=== PATIENT | female | born 2000 | race African-American/Black ===

== ENCOUNTER 2018-07-11 07:51 | Emergency (ER) | payer MEDICAID ==
[~2018-07-11] VITALS: Ht 154.9 cm; Wt 54.4 kg
[2018-07-11 08:29] LABS: Urine Bacteria NONE SEEN /hpf (None Seen); Urine Blood Negative /uL (Negative); Urine Specific Gravity 1.024 (1.001-1.035); Urine WBC 27 /hpf (0 - 5)
[2018-07-11 08:41] VITALS: BP 125/71
[2018-07-11 08:48] LABS: Alcohol, Urine < 3.0 mg/dL (0-5); Amphetamine Screen, Urine NEGATIVE (NEGATIVE); Barbiturate Scree,Urine NEGATIVE (NEGATIVE); Benzodiazephine Screen, Urine NEGATIVE (NEGATIVE); Cannabinoid Screen, Urine NEGATIVE (NEGATIVE); Cocaine Screen, Urine NEGATIVE (NEGATIVE); Opiate Scree,Urine NEGATIVE (NEGATIVE); Phencyclidine Screen, Urine NEGATIVE (NEGATIVE)
[2018-07-11 09:01] LABS: Basophils # (auto) 0.1 uL; Basophils % (auto) 0.7 % (0.0-2.0); Eosinophils # (auto) 0.4 uL; Eosinophils % (auto) 4.9 % (0.0-7.0); Hematocrit 35.5 % (36.0-46.0); Hemoglobin 10.9 g/dL (12.2-16.2); Lymphocytes # (auto) 1.8 uL; Mean Corpuscular Hemoglobin 20.1 pg (28.0-32.0); Mean Corpuscular Hgb Conc. 30.7 g/dL (32.0-36.0); Mean Corpuscular Volume 65.5 fL (80.0-100.0); Monocytes # (auto) 0.7 uL; Neutrophils # (auto) 5.5 uL; Neutrophils % (auto) 65.4 % (37.0-80.0); Platelet Count (auto) 401 10^3/uL (140-450); Red Blood Cells 5.42 10^6/uL (4.0-5.20); Red Cell Distribution Width 19.6 % (11.8-14.3); White Blood Cell 8.4 10^3/uL (4.4-10.8)
[2018-07-11 09:05] LABS: Urine Pregnacy Test Negative (Negative)
[2018-07-11 09:18] LABS: Calcium 8.7 mg/dL (8.5-10.1); Potassium 3.8 mmol/L (3.5-5.1)
[2018-07-11 09:22] LABS: BUN/Creatinine Ratio 17.2
[2018-07-11 09:24] LABS: Bilirubin, Total 0.2 mg/dL (0.2-1.0); Total Protein 7.7 g/dL (6.4-8.2)
[2018-07-11] MEDS ORDERED: LIDOCAINE W/ EPINEPHRINE 1 % INJ 30ML ONE (09:44)
[2018-07-11] MEDS ORDERED: cefTRIAXone SOD 1,000 MG VL IM ONE (09:45)
== END 2018-07-11 10:16 | disposition home or self-care (01) ==
LOC: ER 07:51
DX: R11.2 Nausea with vomiting, unspecified (principal); N39.0 Urinary tract infection, site not specified; G89.29 Other chronic pain; Z76.0 Encounter for issue of repeat prescription; Z32.02 Encounter for pregnancy test, result negative
CPT/HCPCS: 36415; 80053; 80307; 81001; 81025; 85025; 96372; 99284; J0696; J2001

== ENCOUNTER 2021-08-10 12:19 | Emergency (ER) | payer MEDICAID ==
[~2021-08-10] VITALS: Ht 157.5 cm; Wt 50.8 kg
[2021-08-10 13:03] LABS: Basophils # (auto) 0.1 10 ^3/uL (0-0.2); Basophils % (auto) 0.5 % (0.0-2.0); Eosinophils # (auto) 0.1 10 ^3/uL (0-0.8); Eosinophils % (auto) 0.8 % (0.0-7.0); Hematocrit 30.3 % (36.0-46.0); Hemoglobin 9.2 g/dL (12.2-16.2); Lymphocytes # (auto) 1.6 10 ^3/uL (0.4-5.4); Lymphocytes % (auto) 8.3 % (10.0-50.0); Mean Corpuscular Hemoglobin 19.2 pg (28.0-32.0); Mean Corpuscular Hgb Conc. 30.4 g/dL (32.0-36.0); Mean Corpuscular Volume 63.2 fL (80.0-100.0); Monocytes # (auto) 1.3 10 ^3/uL (0-1.3); Monocytes % (auto) 6.8 % (0.0-12.0); Neutrophils # (auto) 15.9 10 ^3/uL (1.6-8.6); Neutrophils % (auto) 83.6 % (37.0-80.0); Nucleated Red Blood Cells % 0.1 %; Red Blood Cells 4.79 10^6/uL (4.0-5.20); White Blood Cell 19.1 10^3/uL (4.4-10.8)
[2021-08-10 13:05] LABS: Red Cell Distribution Width 20.3 % (11.8-14.3)
[2021-08-10 13:17] LABS: Albumin 3.9 g/dL (3.4-5.0); Calcium 8.9 mg/dL (8.5-10.1)
[2021-08-10 13:20] LABS: BUN/Creatinine Ratio 13.5; Bilirubin, Total 0.2 mg/dL (0.2-1.0); Total Protein 7.6 g/dL (6.4-8.2)
[2021-08-10] MEDS ORDERED: OXYCODONE W/ ACETAMINOPHEN 5/325MG TABLET PO ONE (15:30)
[2021-08-10] MEDS ORDERED: cefTRIAXone W LIDOCAINE 1 GM IM IM ONE (16:15)
[2021-08-10 16:47] LABS: Urine Bacteria NONE SEEN /hpf (None Seen); Urine Blood 2+ /uL (Negative); Urine Specific Gravity 1.019 (1.001-1.035); Urine WBC 3 /hpf (0 - 5)
[2021-08-10 17:13] VITALS: BP 128/78
[2021-08-10] MEDS ORDERED: cefTRIAXone SOD 1,000 MG VL ONE (17:26)
[2021-08-10] MEDS ORDERED: LIDOCAINE 1% HCL (LOCAL ANESTH.) INJ 20ML MDV ONE (17:27)
[2021-08-10] MEDS ORDERED: NITR-87 PO (17:47)
[2021-08-10] MEDS ORDERED: PERCOT PO ×3 (17:47→20:57)
== END 2021-08-10 17:51 | disposition home or self-care (01) ==
LOC: ER 12:19
DX: N93.9 Abnormal uterine and vaginal bleeding, unspecified (principal)
CPT/HCPCS: 36415; 76801; 80053; 81001; 81025; 84702; 85025; 96372; 99284; J0696; J2001

== ENCOUNTER 2024-05-09 04:48 | Emergency (ER) | payer MEDICAID, OTHER ==
[~2024-05-09] VITALS: Ht 152.4 cm; Wt 130.0 kg
[2024-05-09 04:48] VITALS: BP 116/76; PULSE 86; RESP 14; O2SAT 97
[~2024-05-09 04:48] MED LIST: NITR-87 PO; PERCOT PO
[2024-05-09 07:19] VITALS: TEMP 98
[2024-05-09] MEDS: ACETAMINOPHEN 500 MG TAB PO ONE (07:19)
[2024-05-09] MEDS ORDERED: NAPR-746 PO (07:22)
[2024-05-09] MEDS ORDERED: METH-1181 PO (07:22)
== END 2024-05-09 07:39 | disposition home or self-care (01) ==
LOC: EDBD 04:48 → ER 04:48
DX: S29.012A Strain of muscle and tendon of back wall of thorax, initial encounter (principal); S00.83XA Contusion of other part of head, initial encounter; F41.9 Anxiety disorder, unspecified; J45.909 Unspecified asthma, uncomplicated; Z79.899 Other long term (current) drug therapy; V89.2XXA Person injured in unspecified motor-vehicle accident, traffic, initial encounter; Y93.I9 Activity, other involving external motion; Y92.89 Other specified places as the place of occurrence of the external cause; Y99.8 Other external cause status
CPT/HCPCS: 70450

== ENCOUNTER 2024-06-11 17:23 | Emergency (ER) | payer MEDICAID, OTHER ==
[~2024-06-11 17:23] MED LIST changes: +METH-1181 PO; +NAPR-746 PO
== END 2024-06-11 18:15 | disposition left against medical advice (07) ==
LOC: ER 17:23
DX: O26.891 Other specified pregnancy related conditions, first trimester (principal); R10.9 Unspecified abdominal pain; Z3A.01 Less than 8 weeks gestation of pregnancy; Z53.21 Procedure and treatment not carried out due to patient leaving prior to being seen by health care provider